=== PATIENT | male | born 1960 | race Caucasian/White ===

== ENCOUNTER 2017-01-04 20:03 | Inpatient (IN) | payer MEDICAID ==
[~2017-01-04] VITALS: Ht 170.2 cm; Wt 72.1 kg
--- NOTE | ~2017-01-04 | PA ---
Unit #: [id number] #: [id number] Patient: JULIANA HURLEY [id number] [place] [address] [id number] MR#: [id number] NAME: JULIANA HURLEY. ROOM: P212 Age: 56 Sex: M Admission Date: 01/04/2017 : 1960 Date of Assessment: 01/05/2017 Attending Physician: Uriel Frazier M.D. Admitting Physician: Uriel Frazier M.D. Primary Care Physician: Primary Care Physician No PSYCHIATRIC ASSESSMENT IDENTIFYING INFORMATION The patient is a 56-year-old single white male admitted to the [address] [place] [address] Unit with a history of depression and methamphetamine abuse. CHIEF COMPLAINT "I hit rock bottom." INFORMANT(S) Patient, reliability is good. HISTORY OF PRESENT ILLNESS The patient is a 56-year-old white male with an extensive history of methamphetamine abuse. He also admits to abuse of cannabis. The patient denies any intravenous but reports that he smokes and uses by means of nasal insufflation. The patient reports that he has "hit rock bottom" secondary to a substance use. He continues to maintain a domicile and is working as a final touch up painter. He is complaining of some back pain and was recently started on a Medrol Dosepak by his primary care physician for this condition. The patient denies prior chemical dependence or other psychiatric treatment. He was reporting positive suicidal ideation when evaluated yesterday and continues to complain of a sad mood but is denying active suicidal ideation during today's interview. He denies recent changes, and he does report reduction in appetite and sleep related to his increasing recent methamphetamine use. PAST PSYCHIATRIC HISTORY As above. PAST MEDICAL HISTORY As noted previously, the patient complains of recent back pain and suffers from COPD. MEDICATIONS 1. Azithromycin. 2. Cyclobenzaprine. 3. Ibuprofen. 4. Prednisone. 5. Ventolin. ALLERGIES None. FAMILY HISTORY Unit #: [id number] #: [id number] Patient: JULIANA HURLEY Noncontributory. SOCIAL HISTORY The patient lives with his common law of 38 years and their grandson. He is employed as a final touch up painter. He reports substance use as noted previously and is a smoker. MENTAL STATUS EXAMINATION Examination at this time reveals the patient to be a well-developed well-nourished white male appearing his stated age. He is in no apparent physical distress at the time of the examination. He is awake, alert, and oriented in all spheres. His mood is mildly dysphoric, his affect blunted. Speech is generally well-coherent. There are no gross deficits in memory or cognition noted. Intelligence is judged to be in the average range based on fund of knowledge. The patient is cooperative throughout the interview. He is currently reporting positive suicidal ideation. He denies homicidal ideation. He denies any psychotic symptoms. His judgment and insight appear to be intact. ASSETS AND LIABILITIES The patient's assets: Motivation for change. Liabilities: Lack of resources. DIAGNOSTIC IMPRESSION 1. Methamphetamine use disorder. 2. Dysthymic disorder. 3. Degenerative disk disease. 4. Upper respiratory tract infection. 5. Chronic obstructive pulmonary disease. TREATMENT PLAN The patient remains hospitalized for safety and stabilization. Suicide precautions remain in place. The patient expresses interest in residential chemical dependence treatment following discharge, and we will look to refer him to that modality of treatment. ESTIMATED LENGTH OF STAY 3 to 4 days. Dictated by... Uriel Frazier M.D. APARNA/edita TD: 01/05/2017 14:06 JOB #: [id number] Unit #: [id number] #: [id number] Patient: JULIANA HURLEY PSYCHIATRIC ASSESSMENT Page 1 of 1 X Uriel Frazier MD X PSYCHIATRIC ASSESSMENT
--- NOTE | ~2017-01-04 | PN ---
Unit #: [id number] #: [id number] Patient: JULIANA HURLEY [id number] [facility] [address] [place] [address] [id number] MR#: [id number] NAME: JULIANA HURLEY. ROOM: P212 Age: 56 Sex: M Admission Date: 01/04/2017 : 1960 Attending Physician: Uriel Frazier M.D. Admitting Physician: Uriel Frazier M.D. Primary Care Physician: Primary Care Physician Kitty ALEJANDRO PROGRESS NOTES DATE 01/06/2017 DISCUSSION The patient is active within the therapeutic milieu. He continues to complain of depressed mood and some suicidal ideation and is expressing interest in 28-day treatment. He exhibits little in the way of signs or symptoms of withdrawal with methamphetamine having been his substance of choice. Dictated by... Uriel Frazier M.D. CB/bzg TD: 01/06/2017 14:43 JOB #: [id number] JAVON PROGRESS NOTES Page 1 of 1 X Uriel Frazier MD PROGRESS NOTE
--- NOTE | ~2017-01-04 | HP ---
Unit #: [id number] #: [id number] Patient: ANTHONY HURLEY [id number] [place] [address] [id number] MR#: [id number] NAME: ANTHONY HURLEY. ROOM: P212 Age: 56 Sex: M Admission Date: 01/04/2017 : 1960 Attending Physician: Uriel Frazier M.D. Admitting Physician: Uriel Frazier M.D. Primary Care Physician: Primary Care Physician No HISTORY AND PHYSICAL HISTORY OF PRESENT ILLNESS Anthony is a a 56 year old admitted to [address] [place] [address] because of his drug use. PAST MEDICAL HISTORY 1. History of illicit substance abuse to include methamphetamine. 2. Hepatitis C. 3. COPD. PAST SURGICAL HISTORY Nothing reported. ALLERGIES No known drug allergies. SOCIAL HISTORY Smokes 1 1/2 packs per day. Denies alcohol. Admits to a history of illicit drug use to include methamphetamine. FAMILY HISTORY Medically noncontributory. REVIEW OF SYSTEMS CONSTITUTIONAL: No fever or chills. HEENT: Denies any sore throat, ear pain or runny nose. CARDIOVASCULAR: Denies chest pain, irregular heart rhythm or palpitations. CHEST: Denies shortness of breath or cough. No hemoptysis. GASTROINTESTINAL: Denies nausea, vomiting, diarrhea or chronic constipation. ENDOCRINE: Denies history of increased thirst or urination. No recent significant weight loss or gain. GENITOURINARY: Denies dysuria, frequency, or hematuria. SKIN: Denies any rashes. HEMATOLOGIC: Denies history of increased bleeding or bruising. MUSCULOSKELETAL: Denies any hot, swollen joints. No generalized muscle pain. NEUROLOGIC: Denies problems with vision or speech. No frequent, severe headaches. No numbness, tingling or weakness in any extremities. Denies loss of bladder or bowel control. CURRENT MEDICATIONS 1. Protonix 40 mg q day 2. Ibuprofen 800 mg q 6 hours Unit #: [id number] #: [id number] Patient: ANTHONY HURLEY 3. Flexeril 10 mg t.i.d. 4. Proventil inhaler p.r.n. 5. Milk of Magnesia p.r.n. 6. Maalox p.r.n. 7. Tylenol p.r.n. PHYSICAL EXAMINATION GENERAL: Alert, well-nourished, in no apparent distress. VITAL SIGNS: Blood pressure 120/74, heart rate 64, respirations 16, temperature 98.6. WEIGHT: 159. HEIGHT: 5 foot 7 inches. SKIN: Warm and dry without rash or lesion. HEENT: Normocephalic. TMs not viewed. Oral and nasal passages clear. Conjunctivae clear. Pupils equal, round and reactive to light and accommodation. Extraocular movements intact. NECK: Supple without lymphadenopathy or thyromegaly. HEART: Regular rate and rhythm without murmur. LUNGS: Clear. ABDOMEN: Soft, nontender. : Not done. EXTREMITIES: No evidence of cyanosis, clubbing or edema. Moves all extremities without focal deficit. NEUROLOGICAL: Grossly within normal limits. Cranial Nerves: II: Visual olson are intact. III, IV AND : Extraocular movements are intact. Pupils are equal, round and reactive to light. V: Facial sensation is grossly normal. VII: Facial movements and expression are normal. VIII: Auditory acuity grossly intact. IX, X: Uvula is midline. Phonation is normal. XI: Patient shrugs shoulders and turns head normally. XII: Tongue protrudes in the midline. Sensory and Motor Function: Sensory and motor sensation is grossly normal. Motor: moves all extremities well. Coordination: Gait is normal. Deep Tendon Reflexes: Intact. IMPRESSION Psychiatric admission. RECOMMENDATIONS PSYCHIATRIC: Per psychiatrist. MEDICAL: I see no contraindications to participating in facility's activities. MEDICAL PROGNOSIS Good. MEDICAL CONDITION Stable. Dictated by... Liliana Pinto P.A.-C. for Melani Zhang M.D. Unit #: [id number] #: [id number] Patient: ANTHONY HURLEY ALISHA/delfina TD: 01/06/2017 00:26 JOB #: [id number] HISTORY AND PHYSICAL Page 1 of 1 X Liliana Pinto HISTORY AND PHYSICAL
--- NOTE | ~2017-01-04 | DS ---
Unit #: [id number] #: [id number] Patient: JULIANA HURLEY [id number] [facility] [address] [place] [address] [id number] MR#: [id number] NAME: JULIANA HURLEY. ROOM: [place] Age: 56 Sex: M Admission Date: 01/04/2017 : 1960 Discharge Date: 01/07/2017 Attending Physician: Uriel Frazier M.D. Primary Care Physician: Primary Care Physician No DISCHARGE SUMMARY REASON FOR ADMISSION The patient is a 56-year-old white male, admitted with depressed mood related to history of psychostimulant abuse. HOSPITAL COURSE The patient was admitted to [address] [place] [address] and placed on suicide precautions. He participated actively within the therapeutic milieu and his stay in the hospital progressed without incident. By 01/07/2017, the patient requested discharge citing a wish to attend the intensive outpatient program. Discharge was ordered. FINAL DIAGNOSES Methamphetamine use disorder, dysthymic disorder, degenerative disk disease, upper respiratory tract infection, chronic obstructive pulmonary disease. DISPOSITION ON DISCHARGE The patient is discharged on no psychotropic medications. He will continue previously prescribed Flexeril 10 mg t.i.d. for muscle relaxation, Motrin 800 mg q.6 hours p.r.n. pain, Proventil HFA 2 puffs q.4 hours p.r.n. shortness of air, Protonix 40 mg daily for GERD. DISCHARGE INSTRUCTIONS No dietary or physical restrictions were placed on the patient at the time of discharge. FOLLOWUP Followup will take place in the chemical dependency intensive outpatient program provided by this facility. PROGNOSIS The patient's prognosis is considered fair. Dictated by... Uriel Frazier M.D. CB/brysonl TD: 01/08/2017 11:43 JOB #: [id number] Unit #: [id number] #: [id number] Patient: JULIANA HURLEY DISCHARGE SUMMARY Page 1 of 1 X Uriel Frazier MD X DISCHARGE SUMMARY
[2017-01-05 09:49] LABS: ALBUMIN SERUM 3.7 g/dL (3.5-5.0); BILIRUBIN,TOTAL 0.3 mg/dL (0.2-2.0); CALCIUM SERUM 8.9 mg/dL (8.4-10.2); CREATININE SERUM 0.9 mg/dL (0.6-1.4); GLOM FILT RATE Estimated 96.5 mL/min (>60); POTASSIUM 4.3 mmol/L (3.5-5.1)
[2017-01-05 10:00] LABS: BASOPHIL# 0.1 X10e3 (0-0.3); BASOPHIL% 0.4 % (0-2.5); EOSINOPHIL# 0.2 X10e3 (0-0.7); EOSINOPHIL% 1.4 % (0.0-7.0); HEMATOCRIT 42.4 % (38.0-50.0); HEMOGLOBIN 13.8 gm/dL (13.0-16.0); LYMPHOCYTE% 26.9 % (17.0-45.0); MEAN CELL VOLUME 88.7 FL (83-96); MEAN CORPUSCULAR HGB CONC 32.7 g/dL (30-36); MEAN PLATELET VOLUME 8.3 FL (6.5-11.5); MONOCYTE# 1.2 X10e3 (0-1.0); MONOCYTE% 8.3 % (3.0-12.0); NEUTROPHIL# 9.4 X10e3 (1.5-7.1); PLATELET COUNT 290 X10e3 (140-420); RED BLOOD COUNT 4.78 X10e (3.90-5.60); WHITE BLOOD COUNT 14.9 X10e3 (4.0-10.5)
[2017-01-05 10:07] LABS: DIFF IND YES
[2017-01-05 10:17] LABS: URINE APPEARANCE TURBID; URINE BILIRUBIN NEG (NEG); URINE BLOOD 2+ (NEG); URINE COLOR YELLOW; URINE GLUCOSE NEG (NEG); URINE KETONE NEG (NEG); URINE LEUKOCYTE ESTERASE NEG (NEG); URINE NITRATE NEG (NEG); URINE PH 5.5 (5-8); URINE PROTEIN TRACE (NEG); URINE UROBILINOGEN 0.2 MG/DL (NEG)
[2017-01-05 10:21] LABS: U HYALINE CASTS AUWI 0-2 /[LPF]; URINE BACTERIA AUWI NEG (NEGATIVE); URINE SQUAMOUS EPITHELIAL CELL NONE SEEN /[HPF]; UWBCS1 AUWI 0-2 (0-5)
[2017-01-05 10:28] LABS: AMPHETAMINE NEG (NEG); BARBITURATES NEG (NEG); BENZODIAZEPINES NEG (NEG); COCAINE NEG (NEG); MARIJUANA NEG (NEG); OPIATES POS (NEG); TRICYCLIC ANTIDEPRESSANTS NEG (NEG); U METHADONE NEG (NEG)
[2017-01-05 10:38] LABS: ANISOCYTOSIS SL; PLATELET ESTIMATE NORMAL (NORMAL)
== END 2017-01-07 13:32 | disposition home or self-care (01) | DRG 897 ==
LOC: P2S 23:07
PROVIDERS: Specialist
DX: F15.10 Other stimulant abuse, uncomplicated (principal); R45.851 Suicidal ideations; F34.1 Dysthymic disorder; J06.9 Acute upper respiratory infection, unspecified; J44.9 Chronic obstructive pulmonary disease, unspecified; F17.210 Nicotine dependence, cigarettes, uncomplicated; Z86.19 Personal history of other infectious and parasitic diseases
CPT/HCPCS: 80053; 80307; 81003; 85025